=== PATIENT | male | born 1940 | race Caucasian/White ===

== ENCOUNTER 2017-01-17 12:56 | Emergency (ER) | payer MEDICARE, OTHER ==
[2017-01-17 13:23] VITALS: BP 122/56
--- NOTE | 2017-01-17 13:41 | UC ---
Skin Complaint HPI - HPI Summary HPI Summary: Itchy rash on abdomen, back, shoulders, and arms. Started on abdomen 2 nights ago. Denies fever, vomiting, cough, trouble breathing, fainting, chest pain, tongue swelling, or other symptoms. Finished a course of clindamycin today for dental problem -- has never taken in the past, is allergic to PCN. Denies other food allergies or hx of skin intolerance. - History of Current Complaint Chief Complaint: UCRash Time Seen by Provider: 01/17/17 13:24 Stated Complaint: RASH Hx Obtained From: Patient Onset/Duration: Gradual Onset, Lasting Days Timing: Constant Onset Severity: Mild Current Severity: Moderate Location: Generalized Character: Pruritus Alleviating: Nothing Associated Signs & Symptoms: Positive: Negative Related History: Recent change in medication - Allergy/Home Medications Allergies/Adverse Reactions: Allergies Allergy/AdvReac Type Severity Reaction Status Date / Time Penicillins Allergy Severe Edema Verified 09/21/12 08:43 Home Medications: Home Medications Clindamycin Cap(NF) [Cleocin 300 mg Cap(NF)] 300 mg PO Q6H 01/17/17 [History Confirmed 01/17/17] Review of Systems Constitutional: Negative Skin: Rash Eyes: Negative ENT: Negative Respiratory: Negative Cardiovascular: Negative Gastrointestinal: Negative Genitourinary: Negative Motor: Negative Neurovascular: Negative Musculoskeletal: Negative Neurological: Negative Psychological: Negative All Other Systems Reviewed And Are Negative: Yes PMH/Surg Hx/FS Hx/Imm Hx Endocrine History Of: Reports: Diabetes - Surgical History Surgical History: Yes Surgery Procedure, Year, and Place: 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 - Family History Known Family History: Negative: Blood Disorder - Social History Alcohol Use: None Substance Use Type: None Smoking Status (MU): Never Smoked Tobacco Physical Exam Triage Information Reviewed: Yes Appearance: Well-Appearing, No Pain Distress, Well-Nourished Vital Signs: Initial Vital Signs Temp 98.7 F 01/17/17 13:16 Pulse 82 01/17/17 13:16 Resp 16 01/17/17 13:16 BP 122/56 01/17/17 13:16 Pulse Ox 99 01/17/17 13:16 Vital Signs Reviewed: Yes Eye Exam: Normal Eyes: Positive: Conjunctiva Clear ENT Exam: Normal ENT: Positive: Normal ENT inspection, Hearing grossly normal, Pharynx normal, TMs normal Dental Exam: Normal Neck exam: Normal Neck: Positive: Supple, Nontender, No Lymphadenopathy Respiratory Exam: Normal Respiratory: Positive: Chest non-tender, Lungs clear, Normal breath sounds, No respiratory distress, No accessory muscle use Cardiovascular Exam: Normal Cardiovascular: Positive: RRR, No Murmur Musculoskeletal Exam: Normal Neurological Exam: Normal Psychological Exam: Normal Skin: Positive: rashes - diffuse red spots up to 1cm irreg, separate on entire trunk and BUE. No spots on legs or face. Course/Dx - Diagnoses Provider Diagnoses: clindamycin allergy Discharge - Discharge Plan Condition: Stable Disposition: HOME Patient Education Materials: Antibiotic Medication Allergy (ED) Referrals: Jose KLEIN,Melanie Biggs [Primary Care Provider] - Additional Instructions: Please tell your pharmacy and your primary care provider that you are allergic to clindamycin and should not take it in the future. There is no specific treatment for your symptoms -- you can use moisturizing skin cream for dryness and diphenhydramine for itching; no matter what, your symptoms should be fading by the end of the week. If not, please return here or see your regular doctor for a recheck.
== END 2017-01-17 14:10 | disposition home or self-care (01) ==
LOC: UCCORT 12:56
DX: L25.8 Unspecified contact dermatitis due to other agents (principal); T36.8X5A Adverse effect of other systemic antibiotics, initial encounter; Y92.9 Unspecified place or not applicable; Z88.0 Allergy status to penicillin
CPT/HCPCS: 99201; G0463

== ENCOUNTER 2018-08-24 18:25 | Emergency (ER) | payer MEDICARE, OTHER ==
[2018-08-24 18:51] VITALS: BP 137/62
--- NOTE | 2018-08-24 18:55 | UC ---
FLU HPI - HPI Summary HPI Summary: 78 yo male presents with a fever and fatigue. He tells me that he was leaving class at [employer] this afternoon and felt more tired than usual with some body aches. He got home and took a 3 hour nap - when he woke up he still had body aches and took his temperature and realized he had a fever prompting his visit to . He tells me that last time he felt this way, he was dx'd with a UTI. He feels well otherwise and denies sinus symptoms, sore throat, cough, SOB, chest pain, abdominal pain, n/v/d/c, dysuria, headache, or dizziness. - History of Current Complaint Chief Complaint: UCGeneralIllness Stated Complaint: CHILLS/SHAKES Time Seen by Provider: 08/24/18 18:55 Severity Currently: None Pain Intensity: 0 - Allergy/Home Medications Allergies/Adverse Reactions: Allergies Allergy/AdvReac Type Severity Reaction Status Date / Time Penicillins Allergy Severe Edema Verified 08/24/18 18:45 PMH/Surg Hx/FS Hx/Imm Hx - Additional Past Medical History Additional PMH: Prostate cancer Endocrine History: Diabetes, Dyslipidemia Cardiovascular History: Hypertension - Surgical History Surgical History: Yes Surgery Procedure, Year, and Place: 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 - Family History Known Family History: Positive: None Negative: Blood Disorder - Social History Occupation: Retired Lives: Alone Alcohol Use: None Substance Use Type: None Smoking Status (MU): Former Smoker When Did the Patient Quit Smoking/Using Tobacco: 1978 Review of Systems Constitutional: Fever, Other - Body aches Skin: Negative Eyes: Negative ENT: Negative Respiratory: Negative Cardiovascular: Negative Gastrointestinal: Negative Genitourinary: Negative Musculoskeletal: Negative Neurological: Negative Psychological: Negative All Other Systems Reviewed And Are Negative: Yes Physical Exam - Summary Physical Exam Summary: GENERAL: NAD. WDWN. No pain distress. SKIN: No rashes, sores, lesions, or open wounds. HEENT: Head: AT/NC Eyes: EOM intact. Conjunctiva clear without inflammation or discharge. Ears: Hearing grossly normal. TMs intact, no bulging, erythema, or edema. Nose: Nasal mucosa pink and moist. NTTP maxillary and frontal sinus. Throat: Posterior oropharynx without exudates, erythema, or tonsillar enlargement. Uvula midline. NECK: Supple. Nontender. No lymphadenopathy. CHEST: CTAB. No r/r/w. No accessory muscle use. Breathing comfortably and in no distress. CV: RRR. Without m/r/g. Pulses intact. Cap refill <2seconds ABDOMEN: Soft. NTTP. No distention or guarding. No CVA tenderness. Bowel sounds present NEURO: Alert. PSYCH: Age appropriate behavior. Triage Information Reviewed: Yes Vital Signs: Initial Vital Signs Temp 101.3 F 08/24/18 18:45 Pulse 92 08/24/18 18:45 Resp 16 08/24/18 18:45 BP 137/62 08/24/18 18:45 Pulse Ox 100 08/24/18 18:45 Laboratory Tests 08/24/18 08/24/18 08/24/18 19:01 19:04 19:20 POC Glucose (mg/dL) 133 H POC Urine Color Yellow POC Urine Clarity Clear POC Urine pH 7.0 POC Ur Specif [place] 1.020 POC Urine Protein Trace A POC Ur Glucose (UA) Trace A POC Urine Ketones Trace A POC Urine Blood Negative POC Urine Nitrite Negative POC Urine Bilirubin Negative POC Urine Urobilinogen 0.2 POC U Leukocyte Esteras Negative Influenza A (Rapid) Negative Influenza B (Rapid) Negative Vital Signs Reviewed: Yes Flu Course/Dx - Course Course Of Treatment: He is well appearing and his PE is WNL. His UA and flu swab are negative. His fingerstick glucose is 133. I discussed with him that his symptoms could likely be viral, but given his age, diabetes, and hx of prostate cancer - close follow up is important. Urged that if his fever persist or if he develops new symptoms to be rechecked. May take tylenol/ibuprofen for fever and discomfort. - Differential Dx/Diagnosis Provider Diagnoses: Fever. Body aches. Viral syndrome Discharge - Sign-Out/Discharge Documenting (check all that apply): Patient Departure All imaging exams completed and their final reports reviewed: No Studies - Discharge Plan Condition: Stable Disposition: HOME Patient Education Materials: Viral Syndrome (ED) Referrals: Jose KLEIN,Melanie Biggs [Primary Care Provider] - Additional Instructions: If you develop a fever, shortness of breath, chest pain, new or worsening symptoms - please call your PCP or go to the ED. - Billing Disposition and Condition Condition: STABLE Disposition: Home
== END 2018-08-24 19:34 | disposition home or self-care (01) ==
LOC: UCCORT 18:25
DX: R50.9 Fever, unspecified (principal); B34.9 Viral infection, unspecified; R52 Pain, unspecified; Z88.0 Allergy status to penicillin; E11.9 Type 2 diabetes mellitus without complications; I10 Essential (primary) hypertension; Z85.46 Personal history of malignant neoplasm of prostate; Z87.891 Personal history of nicotine dependence
CPT/HCPCS: 81003; 99211; G0463